=== PATIENT | male | born 1985 | race Caucasian/White ===

== ENCOUNTER 2020-02-04 07:08 | Day surgery (SDC) | payer BC ==
--- NOTE | 2020-02-03 08:16 | PCM.PREANE ---
Preanesthetic Assessment - Anesthesia/Transfusion/Family Hx Anesthesia History: Prior Anesthesia Without Reaction Family History of Anesthesia Reaction: No Transfusion History: No Prior Transfusion(s) Intubation History: Unknown - Review of Systems General: No Symptoms Pulmonary: No Symptoms (Chew: last chew at [place]. ETOH: occasionally) Cardiovascular: No Symptoms (History of Atrial Fibrillation:) Gastrointestinal: No Symptoms (Anal fissure/and fistula, rectal bleeding) Neurological: No Symptoms (History of multiple sclerosis: History of vertigo with MS few years ago.), Numbness (Fingers and toes from MS: chronic) Other: Reports: None - Physical Assessment NPO Status Date: 02/04/20 NPO Status Time: 04:30 Vital Signs: HR:52 Sat:97% Resp:16 Temp:98.1 BP:126/84 Height: 1.88 m Weight: 98.43 kg ASA Class: 2 Mental Status: Alert & Oriented x3 Airway Class: Mallampati = 2 Dentition: Reports: Normal Dentition, Caries Thyro-Mental Finger Breadths: 3 Mouth Opening Finger Breadths: 3 ROM/Head Extension: Full Lungs: Clear to Auscultation, Normal Respiratory Effort Cardiovascular: Regular Rate, Regular Rhythm, No Murmurs - Allergies Allergies/Adverse Reactions: Allergies Allergy/AdvReac Type Severity Reaction Status Date / Time No Known Allergies Allergy Verified 02/03/20 10:19 - Anesthesia Plan Pre-Op Medication Ordered: None - Acknowledgements Anesthesia Type Planned: MAC Pt an Appropriate Candidate for the Planned Anesthesia: Yes Alternatives and Risks of Anesthesia Discussed w Pt/Guardian: Yes Pt/Guardian Understands and Agrees with Anesthesia Plan: Yes PreAnesthesia Questionnaire - HOME MEDS Home Medications: Home Meds Ascorbate Calcium [Vitamin C] 500 mg PO DAILY 02/03/20 [History] Cholecalciferol (Vitamin D3) [Vitamin D3] 2,000 unit PO DAILY 02/03/20 [History] Multivitamin [Multivitamins] 1 tab PO DAILY 02/03/20 [History] - CURRENT (IN HOUSE) MEDS Current Meds: Current Medications Lactated Ringer's (Ringers, Lactated) 1,000 mls @ 125 mls/hr IV ASDIRECTED WILLIAM Lidocaine/Sodium Bicarbonate (Buffered Lidocaine 1% In Ns 8.4%) 0.25 ml IDERM ONETIME PRN PRN Reason: Prior to IV Start Sodium Chloride (Saline Flush) 10 ml FLUSH ASDIRECTED PRN PRN Reason: Keep Vein Open
[~2020-02-04 07:08] MED LIST: Lactated Ringers 1,000 ML IV SCH; Lactated Ringers 1,000 ML ONE; Lidocaine 1% 6 ML ONE; Lidocaine 1%/Sod Bicarbonate in NS 8.4% 1 ML Syringe IDERM PRN; Midazolam 1 MG/ML 2 ML SDV ONE; Propofol 200 MG/20 ML SDV ONE; Sodium Chloride 0.9% 10 ML Syringe FLUSH PRN; fentaNYL 100 MCG/2 ML SDV ONE
[2020-02-04] MEDS ORDERED: Propofol 200 MG/20 ML SDV ONE ×2 (08:21→08:34)
[2020-02-04] MEDS ORDERED: Methylene Blue 50 MG/10 ML Ampule ONE (08:46)
[2020-02-04] MEDS ORDERED: Sodium Chloride 0.9% 50 ML SDV ONE (08:48)
[2020-02-04] MEDS ORDERED: HYDROmorphone 0.5 MG/0.5 ML Syringe ONE (08:53)
[2020-02-04] MEDS ORDERED: Bacitracin Oint 15 GM Tube ONE (08:56)
[2020-02-04] MEDS ORDERED: Midazolam 1 MG/ML 2 ML SDV ONE (08:56)
--- NOTE | 2020-02-04 09:20 | PCM48HPAN ---
Post Anesthesia Note - EVALUATION WITHIN 48HRS OF ANESTHETIC Vital Signs in Normal Range: Yes Patient Participated in Evaluation: Yes Respiratory Function Stable: Yes Airway Patent: Yes Cardiovascular Function Stable: Yes Hydration Status Stable: Yes Pain Control Satisfactory: Yes Nausea and Vomiting Control Satisfactory: Yes Mental Status Recovered: Yes Vital Signs: Last Vital Signs Temp 97 02/04/20 0908 Pulse 80 02/04/20 0908 Resp 12 02/04/20 0908 BP 124/83 02/04/20 0908 Pulse Ox 92 02/04/20 0908
--- NOTE | 2020-02-04 09:35 | PCM.PRNOTE ---
- Free Text/Narrative Note: Date: 02/04/2020 Procedure: diagnostic colonoscopy, anorectal examination under anesthesia Surgeon: Zeeshan Yeung MD Findings: fairly unremarkable colonoscopic findings, with minor mucosal erythema and cobblestone appearance in the distal rectum. within the anal canal , there was a 5 mm longitudinal mucosal defect with heaped-up surrounding ridge of hypopigmented mucosa which after more thorough investigation appears to be an anterior anal fissure, raising suspicion for perianal Crohn disease, especially given the patient's strong family history. . Detailed Report: The patient was taken to the operating room and placed supine on the table. Time out was performed, and monitored anesthesia care was initiated. The patient was then positioned in lithotomy, and the perineal area was prepped with iodine solution. Drapes were placed, and a lubricated colonoscope was inserted transanally and advanced. The scope went as far as what appeared to be the hepatic flexure. On slow withdrawal of the scope, mucosal surfaces were inspected. No mucosal abnormalities were noted, there was normal vascular pattern without evidence of disease such as polyps or diverticular disease. The prep was good. Within the rectum, there was perhaps mild mucosal erythema and slightly knobby, irregular surface. A sample biopsy of the mucosa was obtained with cold forceps. There was no clear evidence of Crohn's disease or colitis otherwise. The colonoscope was withdrawn, and an endoscope was inserted for inspection of the lesion in question. Although in clinic there appeared to be a fistulous opening at the anterior anoderm, a more careful examination in the operating room there appeared rather to be an anterior anal fissure. The fissure appeared to extend from the dentate line to the anal verge. A lacrimal probe was used to gently investigate the lesion, which was friable and bled easily. No tracking was evident. There was no external opening outside of the anal verge. Just to be certain, a 4-0 Vicryl pursestring stitch was placed around the lesion, and 22-gauge Angiocath on a syringe inserted with diluted methylene blue injected into the lesion. At this point it was clear that there was no fistula in ano. The pursestring stitch was removed, and the procedure ended. The patient tolerated the procedure well. Zeeshan Yeung MD General Surgery
== END 2020-02-04 10:25 | disposition home or self-care (01) ==
LOC: JD.SDS 07:08
PROVIDERS: ATTEND Surgery
DX: K62.89 Other specified diseases of anus and rectum (principal); K63.89 Other specified diseases of intestine; K60.3 Anal fistula; Z79.899 Other long term (current) drug therapy; Z72.0 Tobacco use
CPT/HCPCS: 45380; A9270; J1170; J2001; J2250; J2704; J3010; J7120; 00811